=== PATIENT | male | born 1935 | race Caucasian/White ===

== ENCOUNTER 2019-05-07 06:06 | Day surgery (SDC) | payer OTHER, MEDICARE ==
[~2019-05-07] VITALS: Ht 175.3 cm; Wt 60.8 kg
--- NOTE | ~2019-05-07 | O ---
[facility] [place] [address] OPERATIVE REPORT Name: SJ SABILLON Room #: DEP [facility] [place] [place] M.R.#: [id number] Admission: 05/07/19 ������������������ Attend Phys: Jaquan Chamorro MD Discharge: 05/07/19 ������������������ Date of : 33 Report #: [id number] THIS REPORT FOR: //name// CC: TONY Prasad DO DATE OF SERVICE: 05/07/2019 SURGEON: Jaquan Chamorro MD PREOPERATIVE DIAGNOSIS: Foreign body, right external auditory canal. POSTOPERATIVE DIAGNOSES: Foreign body, right external auditory canal. OPERATION PERFORMED: Removal of foreign body under binocular microscopy, right external auditory canal. 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 The patient was recommended temporal bone CT scan and discussion was given to his family about options including the possibility of cochlear implantation made more difficult by his age and debility. They called me this week in followup as he was complaining of his right ear. He had placed a foreign body in the right ear, thought to be a hearing aid battery. Examination did in fact confirm a foreign body deep wedged in the canal at the level of the tympanic membrane. The patient was intolerant of examination in the office and recommendations were made to proceed to the Emergency Room. Because of the concern for a battery, this was recommended for as soon as possible the following day. DESCRIPTION OF PROCEDURE: The patient was brought to the operating room and placed supine on the operating table. After adequate general anesthesia was achieved via laryngeal mask anesthesia, right ear was turned up under the binocular microscope, examination was made. There was a very firm foreign body wedged in the distal canal. Upon manipulation, this did appear to be a hearing aid battery shape. I was able to wedge a short 0.5 mm right angle into the groove on the hearing aid battery and was, with that technique, able to tease the battery up the canal, which was swollen. This was able to be removed and delivered into a cup, which was given to his daughter and son. The ear canal was irrigated copiously with saline and suctioned. Confirmation was made that there was no tympanic membrane perforation, but definitely irritation of the canal. Ciprodex Otic drops were flooded in the canal. The opposite left ear was again examined and found to be free of any foreign body or other mass. [facility] [address] [place] [address] OPERATIVE REPORT Name: SJ SABILLON Room #: DEP [facility]#: [id number] Admission: 05/07/19 ������������������ Attend Phys: Jaquan Chamorro MD Discharge: 05/07/19 ������������������ Date of : 33 Report #: [id number] patient was then returned to anesthesia, awake without difficulty, returned to recovery in good condition. Sponge and needle counts were correct. There were no complications and the blood loss was none. He will be watched until awake and stable. Presuming he does well, discharge back to his nursing half-way. He will follow up with me in 3 weeks. Written and verbal discharge instructions and emergency precautions have been given to both his daughter and son. DISCHARGE MEDICATIONS: Include Ciprodex Otic drops 4 drops b.i.d. for 10 days, Tylenol or Motrin for pain. He is instructed on water precautions for the ear. I had discussion with his son and daughter today about possibly limiting the availability of batteries for his hearing aid so that he is not able to manipulate these on his own. ��������������������������������������������� ���������������������������������������� By: ��������������������������������������������� 1627 46 Jaquan Chamorro MD /nt
[2019-05-07 14:16] LABS: ABSOLUTE NEUTROPHILS 5.5 thou/uL (1.4-8.2); BASOPHILS 0.4 % (0.0-2.0); EOSINOPHILS 4.3 % (0.0-3.0); HEMATOCRIT 32.3 % (42.0-52.0); HEMOGLOBIN 11.1 gm/dL (14.0-18.0); LYMPHOCYTES 21.4 % (24.0-44.0); MCHC 34.4 g/dL (28.0-37.0); MCV 93.2 fL (80.0-100.0); MONOCYTES 10.7 % (1.0-8.0); PLATELET COUNT 403 thou/uL (150-400); POLYS 63.2 % (36.0-66.0); RBC 3.46 mil/uL (4.50-6.00); RDW 16.3 % (10.5-14.5); WBC 8.6 thou/uL (4.0-11.0)
[2019-05-07 14:22] LABS: CALCIUM 9.2 mg/dL (8.5-10.1); CREATININE 0.9 mg/dL (0.7-1.3); POTASSIUM 4.5 mmol/L (3.5-5.1)
[2019-05-07 14:28] LABS: ALBUMIN 3.2 g/dL (3.4-5.0); TOTAL BILIRUBIN 0.9 mg/dL (<0.1-1.0); TOTAL PROTEIN 6.9 g/dL (6.4-8.2)
[2019-05-07] MEDS ORDERED: COLACE100 MG PO (14:43)
[2019-05-07] MEDS ORDERED: MIRALAX17 GM PO (14:43)
[2019-05-07] MEDS ORDERED: HYDRALAZINE 10M10 MG PO (14:45)
[2019-05-07] MEDS ORDERED: NORVASC10 MG PO (14:45)
[2019-05-07] MEDS ORDERED: LOPRESSOR25 PO (14:46)
[2019-05-07] MEDS ORDERED: METHIMAZOLE5 MG PO (14:46)
[2019-05-07] MEDS ORDERED: CULTURELLE1 EACH PO (14:47)
[2019-05-07] MEDS ORDERED: LIPITOR40 MG PO (14:48)
[2019-05-07 15:08] VITALS: BP 122/44
--- NOTE | 2019-05-07 16:15 | EKG ---
[address] [employer] [address] ELECTROCARDIOGRAM REPORT Name: SJ SABILLON Room #: 150-5 [facility]#: [id number] ������������������ Admission: 05/07/19 ������������������ Attend Phys: Jaquan Chamorro MD Discharge: ������������������ Date of : 33 Report #: [id number] ����������������������������������������������������������������� [id number] THIS REPORT FOR: //name// 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: CHEMA : 1935 Requested By: Jaquan Chamorro Order Number: [id number] MD: Sandeep Sullivan Measurements Intervals [place] Rate: 62 P: 42 SC: 157 QRS: -46 QRSD: 127 T: 29 QT: 455 QTc: 462 Interpretive Statements Sinus rhythm Right bundle branch block No previous ECG available for comparison Electronically Signed On 05-07-2019 16:15:09 CDT by Sandeep Sullivan [email or web address] ��������������������������������������������� <ELECTRONICALLY SIGNED> ���������������������������������������� By: Sandeep Sullivan MD, [facility] ��������������������������������������������� 05/07/19 1615 1440 1440 Sandeep Sullivan MD, FACC /EPI
[2019-05-07] MEDS ORDERED: CIPRODEX OTIC7.5 ML TOP (16:33)
[2019-05-07 16:55] VITALS: BP 122/44
== END 2019-05-07 18:00 | disposition home or self-care (01) ==
LOC: TBA 06:06 → OR 06:06 → TBA 06:07 → OR 16:44
PROVIDERS: Otolaryngology Plastic Surgery within the Head & Neck
DX: T16.1XXA Foreign body in right ear, initial encounter (principal); J44.9 Chronic obstructive pulmonary disease, unspecified; E03.9 Hypothyroidism, unspecified; Z98.890 Other specified postprocedural states; Z87.891 Personal history of nicotine dependence; Z79.899 Other long term (current) drug therapy; X58.XXXA Exposure to other specified factors, initial encounter; Y93.89 Activity, other specified; Y92.89 Other specified places as the place of occurrence of the external cause; Y99.8 Other external cause status
CPT/HCPCS: 50010; 50101; 50386; 62110; 62900; 70005